=== PATIENT | male | born 1990 | race African-American/Black ===

== ENCOUNTER 2019-02-02 13:24 | Emergency (ER) | payer OTHER ==
[~2019-02-02] VITALS: Ht 185.4 cm; Wt 89.7 kg
[2019-02-02] MEDS ORDERED: ONDANSETRON 4MG/2ML VIAL (J2405) IV ONE (13:45)
[2019-02-02] MEDS ORDERED: MORPHINE 4 MG/ML 1ML VIAL/SYRINGE (J2270) IV PRN (13:45)
--- NOTE | 2019-02-02 15:05 | REP ---
Right shoulder five views : There is no fracture or dislocation. Mineralization and joint spaces are normal. There are no calcifications or foreign bodies. Impression: Negative right shoulder . Electronically Signed by Manpreet Lozano MD 02/02/2019 02:57 P
--- NOTE | 2019-02-02 15:08 | REP ---
Right femur: Four views. History: Trauma. Findings: Four views right femur show normal bones, joints and soft tissues. No fracture or subluxation is seen. Impression: Negative radiographs of the right femur. Electronically Signed by Adelso Prado MD 02/02/2019 02:59 P
--- NOTE | 2019-02-02 15:13 | REP ---
Right clavicle two views : There is no fracture or dislocation. Mineralization and joint spaces are normal. There are no calcifications or foreign bodies. Impression: Negative right clavicle . Electronically Signed by Manpreet Lozano MD 02/02/2019 03:04 P
[2019-02-02 15:46] VITALS: BP 145/70
== END 2019-02-02 15:51 | disposition home or self-care (01) ==
LOC: EDBD 13:24 → M ED 13:24
DX: S40.011A Contusion of right shoulder, initial encounter (principal); S70.11XA Contusion of right thigh, initial encounter; V49.59XA Passenger injured in collision with other motor vehicles in traffic accident, initial encounter; Y92.410 Unspecified street and highway as the place of occurrence of the external cause
CPT/HCPCS: 73000; 73030; 73552; 96374; 96375; 99284; J2270; J2405

== ENCOUNTER → 2021-01-13 | Outpatient (REF) ==
--- NOTE | 2021-01-13 15:47 | REP ---
INDICATION: PAIN COMPARISON: None. TECHNIQUE: AP, lateral, sunrise views of the left knee. FINDINGS: Osseous structures, joint spaces, and surrounding soft tissues are normal. No evidence for acute or healed injury. No effusion. No degenerative changes. IMPRESSION: Normal left knee radiographs. <Electronically signed by Curt London > 01/13/21 [id number]
== END ==
LOC: M PLAIMG 14:56
PROVIDERS: ATTEND Internal Medicine
DX: Z00.00 Encounter for general adult medical examination without abnormal findings (principal)